=== PATIENT | female | born 1955 | race Caucasian/White ===

== ENCOUNTER 2020-01-23 13:00 | Observation (INO) ==
[~2020-01-23 13:00] MED LIST: Povidone-Iodine 45 ML, Sodium Chloride IRRigation 1,000 ML IR ONE; TOTAL JOINT MIXTURE (100ML) INTRAART ONE
[2020-01-23] MEDS ORDERED: CeFAZolin Syr 2,000MG/20 ML 2,000 MG/20 ML SYRINGE IVPB ONE (13:24)
[2020-01-23] MEDS ORDERED: Ringers Solution, Lactated 1,000 ML IVC SCH ×2 (13:30→18:18)
[2020-01-23] MEDS ORDERED: Famotidine 20 MG/2 ML VIAL IVP ONE (13:33)
[2020-01-23] MEDS ORDERED: Acetaminophen IV 1,000 MG/100 ML INFUS..BTL IVPB ONE (13:33)
[2020-01-23] MEDS ORDERED: Vancomycin 1,000 MG VIAL ONE ×2 (13:43→15:00)
[2020-01-23] MEDS ORDERED: Ethanol\\Acetic Acid\\Na Ace\\Ben 1,000 ML IRRIG.SOLN IR ONE ×2 (13:43)
[2020-01-23] MEDS ORDERED: *HR* Midazolam HCl 2 MG/2 ML VIAL ONE (13:48)
[2020-01-23] MEDS ORDERED: *HR* FentaNYL (PF) 100 MCG/2 ML VIAL ONE (13:48)
[2020-01-23] MEDS ORDERED: *HR* Propofol 200 MG/20 ML VIAL IVP ONE ×3 (13:54→16:01)
[2020-01-23] MEDS ORDERED: Lidocaine -MPF 2% 2 ML VIAL ONE (13:55)
[2020-01-23] MEDS ORDERED: *HR* Midazolam HCl 5 MG/5 ML VIAL IVP ONE (13:55)
[2020-01-23] MEDS ORDERED: *HR* PHENYLEPHRINE 1,000 MCG/10 ML SYRINGE IVP ONE (13:56)
[2020-01-23] MEDS ORDERED: Ropivacaine/PF 0.5% 30 ML VIAL ONE (13:56)
[2020-01-23] MEDS ORDERED: Ondansetron 4 MG/2 ML VIAL IVP PRN ×2 (13:59→18:18)
[2020-01-23] MEDS ORDERED: *HR* OxyCODONE Immed Rel 5 MG TABLET PO PRN (13:59)
[2020-01-23] MEDS ORDERED: *HR* Rocuronium Bromide 50 MG/5 ML VIAL ONE (14:37)
[2020-01-23] MEDS ORDERED: Ondansetron 4 MG/2 ML VIAL ONE (14:45)
[2020-01-23] MEDS ORDERED: Dexamethasone 4 MG/ML VIAL ONE (14:45)
[2020-01-23] MEDS ORDERED: Tranexamic Acid 1,000 MG/10 ML VIAL ONE (14:47)
[2020-01-23] MEDS ORDERED: *HR* Magnesium Sulfate 1 GM/2 ML VIAL ONE (14:59)
[2020-01-23 17:23] LABS: Hematocrit 41.2 % (35.3-44.9)
[2020-01-23] MEDS ORDERED: MOM Conc 10 ML UD.LIQ PO PRN (18:18)
[2020-01-23] MEDS ORDERED: D5% in Water 1,000 ML IVC PRN (18:18)
[2020-01-23] MEDS ORDERED: Dextrose Gel 15 GM/37.5 ML TUBE PO PRN ×2 (18:18)
[2020-01-23] MEDS ORDERED: Naloxone 0.4 MG/ML INJ IVP PRN (18:18)
[2020-01-23] MEDS ORDERED: *HR* Dextrose 50 % in Water (Vial) 50 ML VIAL IVP PRN (18:18)
[2020-01-23] MEDS ORDERED: *HR* Promethazine 25 MG/ML VIAL IVP PRN (18:18)
[2020-01-23] MEDS ORDERED: Sennosides 8.6 MG TABLET PO PRN (18:18)
[2020-01-23] MEDS: Insulin LISPRO 300 UNITS/3 ML VIAL SQ SCH ×2 (19:25→21:14)
[2020-01-23] MEDS ORDERED: Ketorolac 30 MG/ML VIAL IVP PRN (19:27)
[2020-01-23] MEDS: Ascorbic Acid 500 MG TABLET PO SCH (19:30)
[2020-01-23] MEDS: Gabapentin 300 MG CAPSULE PO SCH (21:29)
[2020-01-23] MEDS: *HR* OxyCODONE Immed Rel 5 MG TABLET PO PRN (21:31)
[2020-01-23] MEDS: CeFAZolin 2 GM/120 ML BAG IVPB SCH (23:41)
[2020-01-24 07:03] LABS: Basophils % 0.1 %; Hematocrit 36.2 % (35.3-44.9); Hemoglobin 11.6 g/dL (11.5-15.4); Immature Granulocytes % 0.5 % (0-4); Lymphocytes # 0.8 K/mcL (0.6-4.6); Lymphocytes % 5.1 %; Mean Corpuscular Hemoglobin 29.9 pg (28.0-33.3); Mean Corpuscular Volume 93.3 fL (83.0-100.0); Mean Platelet Volume 11.2 fL (9.4-12.4); Monocytes # 1.1 K/mcL (0.0-1.3); Monocytes % 7.1 %; Neutrophils # 12.9 K/mcL (1.6-8.9); Platelet Count 224 K/mcL (140-400); Red Blood Count 3.88 M/mcL (3.82-4.97); Red Cell Distribution Width 12.2 % (11.5-14.5); Segmented Neutrophils % 87.2 %; White Blood Count 14.8 K/mcL (4.3-11.1)
[2020-01-24 07:11] LABS: BUN/Creatinine Ratio 44 (6-26); Blood Urea Nitrogen 24 mg/dL (8-23); Calcium 9.2 mg/dL (8.6-10.3); Carbon Dioxide 26 mEq/L (23-29); Chloride 103 mEq/L (98-107); Glucose 124 mg/dL (70-105); Osmolality,Calculated 291 (280-300); Potassium 3.7 mEq/L (3.5-5.1); Sodium 138 mEq/L (136-145); eGFR For African Americans > 60 (> 60); eGFR For Non-African Americans > 60 (> 60)
[2020-01-24] MEDS: CeFAZolin 2 GM/120 ML BAG IVPB SCH (07:44)
[2020-01-24] MEDS: HYDROcodone BIT/Homatropine 5 MG TABLET PO PRN (07:45)
[2020-01-24] MEDS: atenoloL 25 MG TABLET PO SCH (07:45)
[2020-01-24] MEDS: hydroCHLOROthiazide 25 MG TABLET PO SCH (07:45)
[2020-01-24] MEDS: Multivit/Ca/Min/Fe/FA 1 TAB TABLET PO SCH (07:45)
[2020-01-24] MEDS: Ascorbic Acid 500 MG TABLET PO SCH ×2 (07:45→16:37)
[2020-01-24] MEDS: Gabapentin 300 MG CAPSULE PO SCH ×3 (07:45→22:12)
[2020-01-24] MEDS: Insulin LISPRO 300 UNITS/3 ML VIAL SQ SCH ×4 (09:06→22:13)
[2020-01-24] MEDS: *HR* OxyCODONE Immed Rel 5 MG TABLET PO PRN ×3 (13:03→22:11)
[2020-01-24] MEDS: Aspirin Enteric Coated 81 MG Tablet PO SCH (13:03)
[2020-01-25] MEDS: HYDROcodone BIT/Homatropine 5 MG TABLET PO PRN ×2 (01:49→16:27)
[2020-01-25] MEDS: *HR* OxyCODONE Immed Rel 5 MG TABLET PO PRN ×4 (05:13→21:11)
[2020-01-25] MEDS: Ascorbic Acid 500 MG TABLET PO SCH ×2 (08:12→16:27)
[2020-01-25] MEDS: atenoloL 25 MG TABLET PO SCH (08:13)
[2020-01-25] MEDS: Aspirin Enteric Coated 81 MG Tablet PO SCH (08:13)
[2020-01-25] MEDS: hydroCHLOROthiazide 25 MG TABLET PO SCH (08:13)
[2020-01-25] MEDS: Gabapentin 300 MG CAPSULE PO SCH ×3 (08:13→21:02)
[2020-01-25] MEDS: Multivit/Ca/Min/Fe/FA 1 TAB TABLET PO SCH (08:13)
[2020-01-25] MEDS: Insulin LISPRO 300 UNITS/3 ML VIAL SQ SCH ×4 (08:14→21:24)
[2020-01-25 11:47] LABS: Basophils % 0.2 %; Eosinophils % 0.3 %; Hematocrit 34.8 % (35.3-44.9); Hemoglobin 11.2 g/dL (11.5-15.4); Immature Granulocytes % 0.4 % (0-4); Lymphocytes # 1.1 K/mcL (0.6-4.6); Lymphocytes % 9.6 %; Mean Corpuscular HGB Conc 32.2 g/dL (31.6-35.5); Mean Corpuscular Volume 93.3 fL (83.0-100.0); Mean Platelet Volume 10.8 fL (9.4-12.4); Monocytes # 1.3 K/mcL (0.0-1.3); Monocytes % 11.3 %; Neutrophils # 9.2 K/mcL (1.6-8.9); Platelet Count 191 K/mcL (140-400); Red Blood Count 3.73 M/mcL (3.82-4.97); Red Cell Distribution Width 12.2 % (11.5-14.5); Segmented Neutrophils % 78.2 %; White Blood Count 11.7 K/mcL (4.3-11.1)
[2020-01-25 12:05] LABS: BUN/Creatinine Ratio 33 (6-26); Blood Urea Nitrogen 17 mg/dL (8-23); Carbon Dioxide 31 mEq/L (23-29); Chloride 97 mEq/L (98-107); Glucose 125 mg/dL (70-105); Osmolality,Calculated 283 (280-300); Potassium 3.5 mEq/L (3.5-5.1); Sodium 135 mEq/L (136-145); eGFR For African Americans > 60 (> 60); eGFR For Non-African Americans > 60 (> 60)
[2020-01-26] MEDS: *HR* OxyCODONE Immed Rel 5 MG TABLET PO PRN ×3 (06:47→21:46)
[2020-01-26] MEDS: Gabapentin 300 MG CAPSULE PO SCH ×3 (07:26→21:47)
[2020-01-26] MEDS: Aspirin Enteric Coated 81 MG Tablet PO SCH (07:26)
[2020-01-26] MEDS: Multivit/Ca/Min/Fe/FA 1 TAB TABLET PO SCH (07:26)
[2020-01-26] MEDS: atenoloL 25 MG TABLET PO SCH (07:26)
[2020-01-26] MEDS: Ascorbic Acid 500 MG TABLET PO SCH ×2 (07:26→15:14)
[2020-01-26] MEDS: hydroCHLOROthiazide 25 MG TABLET PO SCH (07:26)
[2020-01-26] MEDS: Insulin LISPRO 300 UNITS/3 ML VIAL SQ SCH ×4 (07:41→21:48)
[2020-01-26 09:03] LABS: Basophils % 0.2 %; Eosinophils # 0.1 K/mcL (0.0-0.6); Eosinophils % 0.7 %; Hematocrit 32.2 % (35.3-44.9); Hemoglobin 10.5 g/dL (11.5-15.4); Immature Granulocytes % 0.5 % (0-4); Lymphocytes # 0.9 K/mcL (0.6-4.6); Lymphocytes % 8.6 %; Mean Corpuscular HGB Conc 32.6 g/dL (31.6-35.5); Mean Corpuscular Hemoglobin 30.7 pg (28.0-33.3); Mean Corpuscular Volume 94.2 fL (83.0-100.0); Mean Platelet Volume 10.9 fL (9.4-12.4); Monocytes % 9.5 %; Neutrophils # 8.6 K/mcL (1.6-8.9); Platelet Count 178 K/mcL (140-400); Red Blood Count 3.42 M/mcL (3.82-4.97); Red Cell Distribution Width 12.3 % (11.5-14.5); Segmented Neutrophils % 80.5 %; White Blood Count 10.6 K/mcL (4.3-11.1)
[2020-01-26 09:21] LABS: BUN/Creatinine Ratio 35 (6-26); Blood Urea Nitrogen 16 mg/dL (8-23); Carbon Dioxide 30 mEq/L (23-29); Chloride 97 mEq/L (98-107); Glucose 161 mg/dL (70-105); Osmolality,Calculated 285 (280-300); Potassium 2.9 mEq/L (3.5-5.1); Sodium 135 mEq/L (136-145); eGFR For African Americans > 60 (> 60); eGFR For Non-African Americans > 60 (> 60)
[2020-01-26] MEDS: HYDROcodone BIT/Homatropine 5 MG TABLET PO PRN (15:15)
[2020-01-27 05:40] LABS: Basophils % 0.3 %; Eosinophils # 0.3 K/mcL (0.0-0.6); Eosinophils % 2.8 %; Hematocrit 32.5 % (35.3-44.9); Hemoglobin 10.6 g/dL (11.5-15.4); Immature Granulocytes % 0.4 % (0-4); Lymphocytes # 1.7 K/mcL (0.6-4.6); Lymphocytes % 18.5 %; Mean Corpuscular HGB Conc 32.6 g/dL (31.6-35.5); Mean Corpuscular Hemoglobin 30.6 pg (28.0-33.3); Mean Corpuscular Volume 93.9 fL (83.0-100.0); Mean Platelet Volume 11.2 fL (9.4-12.4); Monocytes % 10.5 %; Neutrophils # 6.1 K/mcL (1.6-8.9); Platelet Count 193 K/mcL (140-400); Red Blood Count 3.46 M/mcL (3.82-4.97); Red Cell Distribution Width 12.5 % (11.5-14.5); Segmented Neutrophils % 67.5 %; White Blood Count 9.1 K/mcL (4.3-11.1)
[2020-01-27] MEDS: *HR* OxyCODONE Immed Rel 5 MG TABLET PO PRN ×4 (05:51→23:35)
[2020-01-27 06:08] LABS: BUN/Creatinine Ratio 35 (6-26); Blood Urea Nitrogen 15 mg/dL (8-23); Calcium 9.4 mg/dL (8.6-10.3); Carbon Dioxide 35 mEq/L (23-29); Chloride 96 mEq/L (98-107); Glucose 113 mg/dL (70-105); Osmolality,Calculated 288 (280-300); Sodium 138 mEq/L (136-145); eGFR For African Americans > 60 (> 60); eGFR For Non-African Americans > 60 (> 60)
[2020-01-27] MEDS: Insulin LISPRO 300 UNITS/3 ML VIAL SQ SCH ×4 (09:35→21:52)
[2020-01-27] MEDS: Multivit/Ca/Min/Fe/FA 1 TAB TABLET PO SCH (09:45)
[2020-01-27] MEDS: Ascorbic Acid 500 MG TABLET PO SCH ×2 (09:45→15:43)
[2020-01-27] MEDS: hydroCHLOROthiazide 25 MG TABLET PO SCH (09:45)
[2020-01-27] MEDS: atenoloL 25 MG TABLET PO SCH (09:45)
[2020-01-27] MEDS: Gabapentin 300 MG CAPSULE PO SCH ×3 (09:45→21:51)
[2020-01-27] MEDS: Aspirin Enteric Coated 81 MG Tablet PO SCH (15:45)
[2020-01-28 07:33] VITALS: BP 119/73
[2020-01-28] MEDS: Insulin LISPRO 300 UNITS/3 ML VIAL SQ SCH (08:12)
[2020-01-28] MEDS: *HR* OxyCODONE Immed Rel 5 MG TABLET PO PRN (08:29)
[2020-01-28] MEDS: hydroCHLOROthiazide 25 MG TABLET PO SCH (08:29)
[2020-01-28] MEDS: atenoloL 25 MG TABLET PO SCH (08:29)
[2020-01-28] MEDS: Multivit/Ca/Min/Fe/FA 1 TAB TABLET PO SCH (08:30)
[2020-01-28] MEDS: Aspirin Enteric Coated 81 MG Tablet PO SCH (08:30)
[2020-01-28] MEDS: Ascorbic Acid 500 MG TABLET PO SCH (08:31)
[2020-01-28] MEDS: Gabapentin 300 MG CAPSULE PO SCH (08:31)
== END 2020-01-28 12:40 | disposition home health service (06) ==
LOC: 3NENU 13:00 → SAMDAY 13:00 → 3NENU 18:17
PROVIDERS: ADMIT Orthopaedic Surgery; ATTEND Orthopaedic Surgery